=== PATIENT | male | born 1970 | race Caucasian/White ===

== ENCOUNTER 2016-11-03 16:08 | Emergency (ER) | payer BC, OTHER ==
[~2016-11-03] VITALS: Ht 182.9 cm; Wt 111.0 kg
[~2016-11-03 16:08] MED LIST: CHLOTAB3 PO
[2016-11-03 16:13] VITALS: Ht 182.9 cm; Wt 111.0 kg
[2016-11-03] MEDS ORDERED: SODIUM CHLORIDE 0.9% 1000ML 1,000 ML IV STA ×2 (16:19)
[2016-11-03] MEDS ORDERED: IBUPROFEN 600 MG TAB PO STA (16:23)
[2016-11-03 16:58] LABS: INR 1.1 (0.9-1.1); PARTIAL THROMBOPLASTIN RATIO 1.3; PROTHROMBIN TIME (PATIENT) 11.4 SECONDS (9.0-12.0)
[2016-11-03] MEDS ORDERED: OXYC-59 PO (17:16)
[2016-11-03] MEDS ORDERED: MELO15TA4 PO (17:16)
[2016-11-03] MEDS ORDERED: FLUO40CA8 PO (17:16)
[2016-11-03 17:17] LABS: BUN/CREATININE RATIO 11.3 (10-20); CALCIUM 8.1 mg/dl (8.5-10.1); CREATININE 1.2 mg/dl (0.60-1.40); HEMATOCRIT 47.6 % (42-52); MEAN CELL VOLUME 89.6 fL (80-100); MEAN CORPUSCULAR HEMOGLOBIN 32.6 pg (25-34); MEAN CORPUSCULAR HGB CONC 36.3 g/dl (32-36); MEAN PLATELET VOLUME 10.8 fL (7.4-10.4); PLATELET COUNT 58 K/uL (130-400); POTASSIUM 3.9 mmol/L (3.5-5.1); RED BLOOD COUNT 5.31 M/uL (4.7-6.1); WHITE BLOOD COUNT 4.61 K/uL (4.8-10.8)
[2016-11-03 17:18] LABS: BASO % 0.4 %; BASO ABS # 0.02 K/uL (0-0.2); COMPLETE YES; IG% 0.7 %; LYMPH ABS # 0.46 K/uL (1.2-3.4); MONO % 7.8 %; NEUT % 81.1 %; PLT ESTIMATE DECREASED
--- NOTE | 2016-11-03 17:26 | DIAGNOSTIC IMAGING REPORT ---
CHEST ONE VIEW PORTABLE HISTORY: EVALUATE WEAKNESS COMPARISON: None. FINDINGS: The heart is normal in size. Bibasilar linear densities. Mild central pulmonary vascular congestion without overt edema. No pleural effusions. No pneumothorax. IMPRESSION: 1. Bibasal linear densities consistent with subsegmental atelectasis. 2. Mild central pulmonary vascular congestion without overt edema. Electronically signed by: Mason Hager M.D. 11/03/2016 5:25 PM Dictated Date/Time: 11/03/2016 5:24 PM
[2016-11-03 17:28] LABS: THYROID STIMULATING HORMONE 2.16 uIu/ml (0.300-4.500)
[2016-11-03 17:39] LABS: LYME DISEASE AB IGG NEG (NEG); LYME DISEASE AB IGM NEG (NEG)
[2016-11-03 17:52] VITALS: TEMP 37.7
[2016-11-03 18:06] LABS: URINE APPEARANCE CLEAR (CLEAR); URINE BILIRUBIN NEG (NEG); URINE COLOR DK YELLOW; URINE EPITHELIAL CELL AUTO 20-30 /lpf (0-5); URINE NITRITE NEG (NEG); URINE PH 5.5 (4.5-7.5); URINE SPECIFIC GRAVITY 1.028 (1.000-1.030); UROBILINOGEN NEG (NEG)
[2016-11-03 18:07] LABS: MANUAL MICROSCOPIC REQUIRED? NO; REVIEW REQ? NO
[2016-11-03] MEDS ORDERED: DOXYCYCLINE HYCLATE 100 MG CAP PO ONE ×2 (18:15→19:30)
[2016-11-03] MEDS ORDERED: DOXY100C76 PO (19:08)
[2016-11-03] MEDS ORDERED: EMPTY 8 DRAM VIAL ONE (19:19)
[2016-11-03 19:22] VITALS: BP 106/75; PULSE 85; O2SAT 96
--- NOTE | 2016-11-03 23:55 | EMERGENCY ROOM VISIT NOTE ---
History Report prepared by Jesus: Marge Arredondo Under the Supervision of: Dr. Sam Desir M.D. First contact with patient: 16:18 Chief Complaint: FEVER Stated Complaint: FEVER OVER 72HRS,CHILLS History of Present Illness The patient is a 45 year old male who presents to the Emergency Room with complaints of a constant fever beginning 3 days ago. The patient states that he has been feeling sick for about 3 days and has felt run down and tired. He complains of abdominal cramping in the center of his abdomen, loss of appetite, achiness, fatigue, chills, and a constant slight headache. He notes that he has been taking Tylenol to keep his fever down and last took it 3 hours ago. The patient reports that he has been working outside in the [place] for 3 weeks but has not seen any ticks on him. Pt denies joint pains, cough, diaphoresis, visual changes, neck pain, chest pain, breathing difficulties, nausea, vomiting , new back pain, melena, hematochezia, urinary symptoms, numbness, weakness, lymphadenopathy, rash, recent travel, or other complaints. He states that he has not been around anyone that is sick lately. Source of History: patient Onset: 3 days ago Position: other (global) Quality: other (fever) Timing: constant Modifying Factors (Relieving): tylenol Note: He complains of abdominal cramping in the center of his abdomen, loss of appetite, fatigue, chills, and a constant slight headache. Pt denies joint pains , cough, diaphoresis, visual changes, neck pain, chest pain, breathing difficulties, nausea, vomiting, new back pain, melena, hematochezia, urinary symptoms, numbness, weakness, lymphadenopathy, rash, recent travel, or other complaints. Review of Systems See HPI for pertinent positives and negatives. A total of ten systems were reviewed and were otherwise negative. Past Medical & Surgical Medical Problems: (1) Melanoma Family History No pertinent family history stated. Social History Smoking Status: Never Smoker Marital Status: Housing Status: lives with family Occupation Status: employed Current/Historical Medications Scheduled Doxycycline Monohydrate (Monodox), 100 MG PO BID Fluoxetine Hcl (Prozac), 40 MG PO DAILY Meloxicam (Meloxicam), 15 MG PO DAILY Scheduled PRN Oxycodone/Acetaminophen 10MG/325MG (Percocet 10MG/325MG), 1 TAB PO Q4H PRN for Pain Allergies Coded Allergies: Penicillins (Unverified Allergy, Mild, 07/07/09) Physical Exam Vital Signs Date Time Temp Pulse Resp B/P (MAP) Pulse Ox O2 Delivery O2 Flow Rate FiO2 11/03/16 19:22 85 18 106/75 96 11/03/16 17:52 37.7 97 128/82 97 Room Air 11/03/16 16:13 38.4 114 18 125/82 94 Room Air Physical Exam GENERAL: Awake, alert, mildly ill appearing, no distress HEAD: Normocephalic, atraumatic. No edema. EYES: Normal conjunctiva. Sclera non-icteric. EARS: Right TM normal. Left TM normal. NOSE: Mild congestion. OROPHARYNX: Lips, tongue, and mucosa unremarkable. No erythema or exudate. NECK: Supple. No nuchal rigidity. FROM. No adenopathy. Negative jolt accentuation test. RESPIRATORY: CTA bilaterally. No wheezes rales or rhonchi. CARDIAC: Borderline tachycardic rate, normal rhythm. ABDOMEN: Soft, non distended. No tenderness to palpation. NEURO: Normal sensorium. SKIN: No rash or jaundice noted Medical Decision & Procedures ER Provider Diagnostic Interpretation: X-ray: Per my interpretation, radiologist review. CHEST ONE VIEW PORTABLE FINDINGS: The heart is normal in size. Bibasilar linear densities. Mild central pulmonary vascular congestion without overt edema. No pleural effusions. No pneumothorax. IMPRESSION: 1. Bibasal linear densities consistent with subsegmental atelectasis. 2. Mild central pulmonary vascular congestion without overt edema. Electronically signed by: Mason Hager M.D. 11/03/2016 5:25 PM Dictated Date/Time: 11/03/2016 5:24 PM Laboratory Results 11/03/16 16:35 Red Blood Count 5.31, Mean Corpuscular Volume 89.6, Mean Corpuscular Hemoglobin 32.6, Mean Corpuscular Hemoglobin Concent 36.3, Mean Platelet Volume 10.8, Neutrophils (%) (Auto) 81.1, Lymphocytes (%) (Auto) 10.0, Monocytes (%) (Auto) 7.8, Eosinophils (%) (Auto) 0.0, Basophils (%) (Auto) 0.4, Neutrophils # (Auto) 3.74, Lymphocytes # (Auto) 0.46, Monocytes # (Auto) 0.36, Eosinophils # (Auto) 0.00, Basophils # (Auto) 0.02 11/03/16 16:35 Test 11/03/16 16:35 11/03/16 16:43 11/03/16 17:53 White Blood Count 4.61 K/uL (4.8-10.8) Red Blood Count 5.31 M/uL (4.7-6.1) Hemoglobin 17.3 g/dL (14.0-18.0) Hematocrit 47.6 % (42-52) Mean Corpuscular Volume 89.6 fL (80-100) Mean Corpuscular Hemoglobin 32.6 pg (25-34) Mean Corpuscular Hemoglobin Concent 36.3 g/dl (32-36) Platelet Count 58 K/uL (130-400) Mean Platelet Volume 10.8 fL (7.4-10.4) Neutrophils (%) (Auto) 81.1 % Lymphocytes (%) (Auto) 10.0 % Monocytes (%) (Auto) 7.8 % Eosinophils (%) (Auto) 0.0 % Basophils (%) (Auto) 0.4 % Neutrophils # (Auto) 3.74 K/uL (1.4-6.5) Lymphocytes # (Auto) 0.46 K/uL (1.2-3.4) Monocytes # (Auto) 0.36 K/uL (0.11-0.59) Eosinophils # (Auto) 0.00 K/uL (0-0.5) Basophils # (Auto) 0.02 K/uL (0-0.2) RDW Standard Deviation 40.5 fL (36.4-46.3) RDW Coefficient of Variation 12.3 % (11.5-14.5) Immature Granulocyte % (Auto) 0.7 % Immature Granulocyte # (Auto) 0.03 K/uL (0.00-0.02) Platelet Estimate DECREASED Red Blood Cell Morphology Unremarkable Prothrombin Time 11.4 SECONDS (9.0-12.0) Prothromb Time International Ratio 1.1 (0.9-1.1) Activated Partial Thromboplast Time 34.2 SECONDS (21.0-31.0) Partial Thromboplastin Ratio 1.3 Anion Gap 9.0 mmol/L (3-11) Est Creatinine Clear Calc Drug Dose 97.9 ml/min Estimated GFR () 83.0 Estimated GFR (Non- 71.6 BUN/Creatinine Ratio 11.3 (10-20) Calcium Level 8.1 mg/dl (8.5-10.1) Magnesium Level 2.0 mg/dl (1.8-2.4) Total Bilirubin 0.9 mg/dl (0.2-1) Direct Bilirubin 0.2 mg/dl (0-0.2) Aspartate Amino Transf (AST/SGOT) 86 U/L (15-37) Alanine Aminotransferase (ALT/SGPT) 92 U/L (12-78) Alkaline Phosphatase 71 U/L (45-117) Total Protein 7.2 gm/dl (6.4-8.2) Albumin 3.6 gm/dl (3.4-5.0) Lipase 129 U/L (73-393) Thyroid Stimulating Hormone (TSH) 2.160 uIu/ml (0.300-4.500) Lyme Disease IgG Antibody NEG (NEG) Lyme Disease IgM Antibody NEG (NEG) Hepatitis B Surface Antigen NEG (NEG) Hepatitis C Antibody NEG (NEG) Bedside Lactic Acid Venous 0.98 mmol/L (0.90-1.70) Urine Color DK YELLOW Urine Appearance CLEAR (CLEAR) Urine pH 5.5 (4.5-7.5) Urine Specific [place] 1.028 (1.000-1.030) Urine Protein 2+ (NEG) Urine Glucose (UA) TRACE (NEG) Urine Ketones 1+ (NEG) Urine Occult Blood NEG (NEG) Urine Nitrite NEG (NEG) Urine Bilirubin NEG (NEG) Urine Urobilinogen NEG (NEG) Urine Leukocyte Esterase NEG (NEG) Urine WBC (Auto) 1-5 /hpf (0-5) Urine RBC (Auto) 5-10 /hpf (0-4) Urine Hyaline Casts (Auto) 1-5 /lpf (0-5) Urine Epithelial Cells (Auto) 20-30 /lpf (0-5) Urine Bacteria (Auto) NEG (NEG) Laboratory results reviewed by me Medications Administered Medications (Trade) Dose Ordered Sig/James Route Start Time Stop Time Status Last Admin Dose Admin Sodium Chloride 1,000 ml @ 125 mls/hr Q8H STAT IV 11/03/16 16:19 11/03/16 20:41 DC 11/03/16 17:07 125 MLS/HR Sodium Chloride 1,000 ml @ 999 mls/hr Q1H1M STAT IV 11/03/16 16:19 11/03/16 17:19 DC 11/03/16 17:07 999 MLS/HR Ibuprofen (Motrin Tab) 600 mg NOW STAT PO 11/03/16 16:23 11/03/16 16:24 DC 11/03/16 17:06 600 MG Doxycycline Hyclate (Vibramycin Cap) 100 mg ONE ONCE PO 11/03/16 18:15 11/03/16 18:16 DC 11/03/16 18:15 100 MG Doxycycline Hyclate (Vibramycin Cap) 100 mg ONE ONCE PO 11/03/16 19:30 11/03/16 19:31 DC 11/03/16 19:22 100 MG ECG Indication: other (fever) Rate (beats per minute): 100 Rhythm: normal sinus Findings: no acute ischemic change, no ectopy, other (poor r wave progression) ED Course 1618: The patient was evaluated in room C2. A complete history and physical exam was performed. 1619: Sodium Chloride 1000 ml @ 999 mls/hr IV, Sodium Chloride 1000 ml @ 125 mls /hr IV. 1623: Motrin Tab 600mg PO. 1811: I reevaluated and updated the patient. She is feeling better. 1814: Vibramycin Cap 100mg PO. 1912: I reevaluated and updated the patient. 1925: I reevaluated the patient. Discussed results and discharge instructions: He verbalized understanding and agreement. The patient is ready for discharge. Medical Decision Triage Nursing notes reviewed. The patient's presentation and history were concerning for fever. Medication Reconciliation: I attest that I have personally reviewed the patient' s current medication list Blood pressure screening: Patient was found to have an elevated blood pressure and was referred to their primary doctor for recheck and further treatment. Etiologies such as viral syndrome, otitis, pharyngitis, pneumonia, urinary tract infection, sepsis, bacteremia, meningitis, lyme disease, tickborne illness , as well as others were entertained. The patient was evaluated. He had no abnormal physical findings except for malaise and fever. No meningeal findings. The patient had an IV established. Cultures were Obtained. He was hydrated. He was given ibuprofen. The patient was feeling better after hydration and ibuprofen. His temperature had come down. Chest x-ray was unremarkable. He had a mild leukopenia and thrombocytopenia on CBC. His chemistry panel revealed slight elevation of his LFTs. Lyme test was negative. Acute hepatitis panel ordered. Given his exposure prolonged times been in the [place] over the last 3 weeks he is at high risk for Lyme as well as other tickborne illnesses and that is a concern. I did order an erlichiosis and babesiosis PCR because of the leukopenia, thrombocytopenia, and elevated LFTs. The patient was improved. He was started on doxycycline. He has no rash to suggest RMSF. I discussed close follow-up with his primary physician and the patient was in agreement. By the evaluation outlined above other emergent etiologies such as those listed in the differential, as well as others, were deemed relatively unlikely. The patient was educated about the findings as listed above. All questions were answered and the patient was pleased with the treatment. Return instructions were outlined and the patient was discharged in stable condition. The patient was referred to his PCP this week for follow-up for a recheck of the current condition. Of note: After the patient was discharged the labs notified the Emergency Room that they did not have the proper blood tubes for the PCR even though it was ordered to be drawn hours before he was discharged. The patient will be contacted in the morning. He needs to have a repeat CBC done in a few days at his primary office and he can be done through their or he can come back to the hospital. The director case management and charge nurse will also contact the primary office to see if they can facilitate this investigation. Impression Primary Impression: Febrile illness Additional Impressions: Elevated LFTs Thrombocytopenia Scribe Attestation The scribe's documentation has been prepared under my direction and personally reviewed by me in its entirety. I confirm that the note above accurately reflects all work, treatment, procedures, and medical decision making performed by me. Departure Information Dispostion Home / Self-Care Prescriptions Doxycycline Monohydrate (Monodox) 100 Mg Cap 100 MG PO BID, #40 CAP Prov: Sam Desir MD 11/03/16 Referrals No Doctor, Assigned (PCP) Forms HOME CARE DOCUMENTATION FORM, IMPORTANT VISIT INFORMATION Patient Instructions My [facility] Additional Instructions Doxycycline 100mg: Take one pill twice daily for 21 days. Take with food, but avoid dairy. Avoid prolonged sun exposure since this medication makes you temporarily more susceptible to sunburns. All antibiotics can cause diarrhea. If this occurs and you feel worse or it does not resolve in 1-2 days follow up with your doctor or return to the Emergency Department as this could be signs of serious underlying problems. Any medication can cause an allergic reaction, stop the pills immediately and return to the ER for rash, hives, breathing difficulties, or swelling. Avoid Tylenol and alcohol until cleared by your PCP. Ibuprofen(Motrin, Advil) may be used for fever or pain. Use 600mg every six hours as needed. Take with food. Avoid using more than 2400mg in a 24 hour period. Do not use 2400mg per day for more than three consecutive days without physician direction. Prolonged inappropriate use can lead to stomach upset or ulcers. Controlling your fever with Tylenol and Ibuprofen as above will make you feel better. Rest and drink plenty of fluids. Avoid strenuous activity until your symptoms resolve and your breathing returns to normal. Return to the ER for chest pain, difficulty breathing, persistent fevers, vomiting, rash, bleeding, easy bruising, worsening of your condition, or as needed. Follow up with your primary physician in 2-3 days for a recheck of the current condition. A repeat complete blood count is recommended as your platelet count was slightly low as well as your white blood cell count. There are pending tests for babesiosis and erlichiosis which are 2 possible tickborne infections that can cause your illness. The should hopefully be back by the end of the week. Call back to [phone] this Friday for results. It is recommended to have a repeat Lyme screen done by your primary physician in one to 2 weeks. Problem Qualifiers
[2016-11-12 21:53] LABS: REFERENCE QUEST TEST REPORT
== END 2016-11-03 19:24 | disposition home or self-care (01) ==
LOC: C.EDB 16:10 → C.EDC 19:24
DX: R69 Illness, unspecified (principal); R74.0 Nonspecific elevation of levels of transaminase and lactic acid dehydrogenase [LDH]; D69.6 Thrombocytopenia, unspecified